=== PATIENT | female | born 1990 | race Caucasian/White ===

== ENCOUNTER 2023-10-23 10:30 | Outpatient (CLI) | payer MEDICAID, SELFPAY ==
--- NOTE | 2023-10-23 10:45 | CRLHL7_ITS ---
For Patients: As a result of the Cures Act, medical imaging exams and procedure reports are released immediately into your electronic medical record. You may view this report before your referring provider. If you have questions, please contact your health care provider. DIGITAL DIAGNOSTIC BILATERAL MAMMOGRAM USING TOMOSYNTHESIS AND COMPUTER-AIDED DETECTION LEFT BREAST ULTRASOUND CLINICAL HISTORY: LEFT breast lump. COMPARISON: None. TECHNIQUE: Digital BILATERAL mammogram in four projections. Tomosynthesis and CAD utilized. Real-time ultrasound imaging of LEFT breast with imaging documentation. BREAST COMPOSITION: The breasts are heterogeneously dense, which may obscure small masses. FINDINGS: 3D CC/MLO BILATERAL mammogram images submitted. Oval nodular density is present within the upper outer quadrant LEFT breast corresponding to the palpable abnormality. No architectural distortion. No adenopathy. No suspicious calcifications. Unremarkable RIGHT breast mammogram images. Targeted LEFT breast ultrasound performed at 2 o`clock 6 cm from the nipple. In this location there is a simple circumscribed anechoic cyst with increased through-transmission measuring 3.7 x 1.3 x 3.2 cm. IMPRESSION: Benign simple cyst LEFT breast 2 o`clock 6 cm from the nipple measuring 3.7 cm. RECOMMENDATIONS: Age-appropriate screening mammography. Ultrasound-guided aspiration if desired. Results and recommendations discussed with the patient. BI-RADS Category 2: Benign A lay language report of this examination will be provided to the patient. Dictated by Grover Geiger MD @ 10/23/2023 11:37:17 AM jj/Dictated by: Grover Geiger MD @ 10/23/2023 11:37:00 AM (Electronically Signed)
--- NOTE | 2023-10-23 11:15 | CRLHL7_ITS ---
For Patients: As a result of the Cures Act, medical imaging exams and procedure reports are released immediately into your electronic medical record. You may view this report before your referring provider. If you have questions, please contact your health care provider. PLEASE SEE DIGITAL DIAGNOSTIC BILATERAL MAMMOGRAM PERFORMED SAME DAY CRL:ginny gross/Dictated by: Grover Geiger MD @ 10/23/2023 11:37:00 AM (Electronically Signed)
== END 2023-10-23 10:31 | disposition home or self-care (01) ==
LOC: MAMMO 10:31
PROVIDERS: PCP Physician Assistant Medical; Visit Provider Physician Assistant Medical
DX: N63.21 Unspecified lump in the left breast, upper outer quadrant (principal); N60.02 Solitary cyst of left breast
CPT/HCPCS: 76642; 77066; G0279

== ENCOUNTER 2024-07-15 14:35 | Outpatient (CLI) | payer MEDICAID, SELFPAY | END 2024-07-15 14:36 | disposition home or self-care (01) | LOC: NFLDREF 07-16 11:24 | PROVIDERS: PCP Physician Assistant Medical; Referring Provider Physician Assistant Medical; Visit Provider Physician Assistant Medical | DX: F90.0 Attention-deficit hyperactivity disorder, predominantly inattentive type (principal); F41.1 Generalized anxiety disorder; Z13.9 Encounter for screening, unspecified; F41.9 Anxiety disorder, unspecified; F32.A Depression, unspecified; Z13.6 Encounter for screening for cardiovascular disorders | CPT/HCPCS: 80053; 80061; 82306; 82607; 82728; 84443 ==

== ENCOUNTER 2024-10-30 14:10 | Outpatient (CLI) | payer MEDICAID, SELFPAY | END 2024-10-30 14:11 | disposition home or self-care (01) | LOC: NFLDREF 10-31 11:53 | PROVIDERS: PCP Physician Assistant Medical; Referring Provider Physician Assistant Medical; Visit Provider Physician Assistant Medical | DX: R79.0 Abnormal level of blood mineral (principal) | CPT/HCPCS: 82728 ==

== ENCOUNTER 2025-01-01 08:45 | Outpatient (RCR) | payer MEDICAID, SELFPAY ==
--- NOTE | 2025-01-01 14:13 | OT.OPOE ---
OT Outpatient Ortho Eval OT Outpatient Ortho Eval* Start: 01/01/25 08:55 Freq: Status: Active Protocol: Document 01/01/25 08:55 JESSICA (Rec: 01/01/25 14:10 JESSICA [id number]) E-signed By Dee Tamez, OTR/L, CLT OT OP Ortho Eval Details Complexity Complexity Low Insurance Information Insurance Information [facility] Out[facility] History/Precautions Current Condition/Medical Diagnosis Referring Provider Manda Lazo PA-C Medical Diagnoses M77.8 Other enthesopathies, not elsewhere classified Left Wrist Tendinitis: M67.834 Treatment Diagnosis L wrist pain, M25.532 Localized edema, R60.0 Date of Onset 2 months ago, had this same thing 3 years ago (03/23/2022) Medical Conditions Depression Other Conditions Left wrist tendinitis (Acute) M77.8 - Other enthesopathies, not elsewhere classified (ICD- 10) Low ferritin (Acute) R79.0 - Abnormal level of blood mineral (ICD-10) Anxiety and depression (Acute) F41.9 - Anxiety disorder, unspecified (ICD-10) F32.A - Depression, unspecified (ICD-10) ADHD (attention deficit hyperactivity disorder), 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 The pain is most pronounced at night, prompting her to wear a wrist brace during sleep. Patient has had some slight numbness and tingling in the L hand (small and ring finger) Ulnar Nerve. Web Knitter are not profoundly lower than the R UE , as the dominant side is typically 10% stronger than the nondominant. Patient reported tenderness in the extensor group of the L hand but no elbow pain. Pain Assessment Pain Pain Yes Pain Comments 5/10 in the L wrist Range of Motion and Strength Shoulder Range of Motion and Strength Shoulder Range of Motion and Strength AROM WNL, strength bilaterally is 5/5 Elbow/Forearm Range of Motion and Strength Elbow/Forearm Range of Motion and AROM WNL, strength bilaterally Strength is 5/5 Wrist Range of Motion and Strength Wrist Range of Motion and Strength AROM is WNL, strength bilaterally is 5/5 Hand Pinch/Contract Technician Strength Hand Pinch/Contract Technician Strength Hand Pinch/Contract Technician Strength Left Hand,Right Hand Left Hand Contract Technician Strength Position 1 in Elbow 70 Flexion (lbs) Contract Technician Strength Position 2 in Elbow 64 Extension (lbs) Lateral Pinch Strength (lbs) 16 Three Point Pinch (lbs) 16 Tip Pinch Strength (lbs) 10 Right Hand Contract Technician Strength Position 1 in Elbow 78 Flexion (lbs) Contract Technician Strength Position 2 in Elbow 84 Extension (lbs) Lateral Pinch Strength (lbs) 15 Three Point Pinch (lbs) 15 Tip Pinch Strength (lbs) 13 Comments Comments Patient did not have pain in the L wrist when doing her button maker/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 Discussed trying to sleep with her L elbow as straight as possible, as these symptoms are usually only in the morning when she first wakes up. Printed off a handout of a soft elbow brace that she can try if her symptoms get worse. Other Problems Opening Containers,Sleeping Patient Potential Good Assessment Assessment Assessment Ivelisse is a 34 year old who presented to her PCP on 12/23/24 for evaluation of left wrist pain. 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 The pain is most pronounced at night, prompting her to wear a wrist brace during sleep. Patient has had some slight numbness and tingling in the L hand (small and ring finger) Ulnar Nerve. Web Knitter are not profoundly lower than the R UE , as the dominant side is typically 10% stronger than the nondominant. Patient reported tenderness in the extensor group of the L hand but no elbow pain. Patient is an excellent candidate for therapy, she was pleasant, alert, orientated, asked great questions in session, was an active listener to information presented to her and showed signs of motivation/ willingness to follow the presented protocol in POC. PLAN: wrist tendonitis protocol, use of Ultrasound, Ionto (if needed), Manual treatment (KYE), development of an individualized home exercise program that progresses as patient is able to take on increased challenge and pain symptoms decrease with patient education on biomechanics/ ergonometric/activity modifications to decrease flare-ups. All questions answered, patient left EVAL with HEP and education on ice cup massaging. Occupational Therapy Treatment Plan - OP Potential Rehabilitation Potential Good Barriers Barriers to goal attainment Repetitive movements, working (doing her job) does not allow time for the tendons to heal. Set Goals Goals Set with Patient Yes Goals Goals 1. Patient will verbalize 3 activity modifications to decrease abusive/overloading of the tendons. -progressing, continue 2. 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 - progressing, continue 3. Through activity participation in skilled therapy sessions, and consistency in performing a customized HEP, patient will improve capacity of tendons and muscles to manage load in order to have less pain with ADLs, work, leisure activities and IADLs. -progressing, continue 4. From EVAL raw score (28 points) on The Disabilities of the Arm, Shoulder and Hand ( QUICK DASH) patient will have a decreased score by >9 points in order to show significant change in UE function to better her ADL, IADL, work and leisure performance. Target Date 12 weeks Treatment Plan Treatment Plan Evaluation,Edema Control, Iontophoresis,Joint Mobilization,Manual Therapy, Ultrasound,Therapeutic Exercise,Therapeutic Activities,Self Care/Home Management,Education Expected Frequency 1x Week Expected Duration 12 Comment Summary Patient had good success from skilled OT (for the same condition) when she attended back in March of 2022 Home Program Home Program Home Program Initiated Home Program Specifics Access Code: [email or web address] URL: [email or web address] Date: 01/01/2025 Prepared by: Dee Tamez Exercises - Isometric Wrist Extension Pronated - 1 x daily - 7 x weekly - 3 sets - 10 reps - Seated Isometric Wrist Flexion Supinated with Manual Resistance - 1 x daily - 7 x weekly - 3 sets - 10 reps - Seated Isometric Wrist Radial Deviation with Manual Resistance - 1 x daily - 7 x weekly - 3 sets - 10 reps - Seated Isometric Wrist Ulnar Deviation with Manual Resistance - 1 x daily - 7 x weekly - 3 sets - 10 reps - Wrist Extensor Stretch With Elbow Flexed: Progression From Elbow at Side - 1 x daily - 7 x weekly - 3 sets - 10 reps Patient Education - Ice Massage Certification Certification Statement I Certify That: Therapy Services Provided, Therapy Plan Established, Therapy Plan Reviewed Certification Information Clinic ID # [id number] Initial Certification Date 01/01/25 Recertification Due Date 04/01/25 Provider Signature Required Yes Provider Signature Shows Agreement With POC & Medical Necessity Physician NPI Number Write NPI# Here Physician Comment/Change Comment or Changes Physician Signature & Date Requested Please Sign/Date Here
== END 2025-04-08 09:24 | disposition home or self-care (01) ==
PROVIDERS: PCP Physician Assistant Medical; Visit Provider Physician Assistant Medical
DX: M77.8 Other enthesopathies, not elsewhere classified (principal); M67.834 Other specified disorders of tendon, left wrist; Z51.89 Encounter for other specified aftercare
CPT/HCPCS: 97110; 97165; X5282